=== PATIENT | female | born 1980 | race Caucasian/White ===

== ENCOUNTER 2018-02-06 08:30 | Day surgery (SDC) | payer OTHER ==
[2018-02-05 10:35] LABS: BILIRUBIN,URINE NEGATIVE (NEGATIVE); BLOOD, URINE NEGATIVE (NEGATIVE); CLARITY/URINE CLEAR (CLEAR); COLOR,URINE YELLOW (YELLOW); GLUCOSE,URINE NEGATIVE (NEGATIVE); KETONES,URINE NEGATIVE (NEGATIVE); LEUKOCYTE ESTERASE ,URINE NEGATIVE (NEGATIVE); NITRITE, URINE NEGATIVE (NEGATIVE); PH,URINE 6.5 (5.0-8.0); PROTEIN URINE NEGATIVE (NEGATIVE); UROBILINOGEN,URINE 0.2 (0.2-1.0)
[2018-02-05 10:39] LABS: HCG,QUAL RESULT NEGATIVE (NEGATIVE)
[2018-02-05 10:41] LABS: BASOPHILS # (AUTO) 0.1 K/uL (0.0-0.2); BASOPHILS % (AUTO) 1.1 % (0.0-2.0); EOSINOPHILS # (AUTO) 0.3 K/uL (0.0-0.4); EOSINOPHILS % (AUTO) 4.8 % (0.0-4.0); HEMOGLOBIN 13.9 g/dL (12.0-16.0); LYMPHOCYTES # (AUTO) 1.6 K/uL (1.0-5.5); MEAN CORPUSCULAR HEMOGLOBIN 31 pg (27-31); MEAN CORPUSCULAR HGB CONC 33 % (32-36); MEAN CORPUSCULAR VOLUME 95 fL (79.0-98.0); MONOCYTES # (AUTO) 0.3 K/uL (0.0-1.0); MONOCYTES % (AUTO) 4.5 % (1.7-9.3); NEUTROPHILS # (AUTO) 3.7 K/uL (1.8-7.7); NEUTROPHILS % (AUTO) 63.6 % (40.0-70.0); PLATELET COUNT (AUTO) 291 K/uL (130-430); RED BLOOD CELL COUNT(AUTO) 4.43 MIL/uL (4.2-6.2); RED CELL DISTRIBUTION WIDTH 12.4 % (9.0-15.0)
[2018-02-05 10:51] LABS: CALCIUM 9.4 mg/dL (8.4-11.0); CREATININE 0.86 mg/dL (0.55-1.30); POTASSIUM 3.8 mmol/L (3.5-5.1)
[~2018-02-06] VITALS: Ht 162.6 cm; Wt 59.0 kg
[2018-02-06] MEDS ORDERED: ONDANSETRON HCL 4 MG/2 ML VIAL IVP ONE (10:35)
[2018-02-06] MEDS ORDERED: BUPIVACAINE /PF 0.5% 30 ML VIAL INJ ONE (10:35)
[2018-02-06] MEDS ORDERED: fentaNYL CITRATE 250 MCG/5 ML AMP IV ONE (10:35)
[2018-02-06] MEDS ORDERED: PROPOFOL 200MG/ 20ML VIAL (DIPRIVAN) IV ONE (10:35)
[2018-02-06] MEDS ORDERED: SEVOFLURANE 15 MIN GAS INH ONE (10:35)
[2018-02-06] MEDS ORDERED: NS 1000 ML IV.SOLN IV ONE (10:35)
[2018-02-06] MEDS ORDERED: CEFAZOLIN 1 GM IVPB PREMIX 50 ML IV ONE (10:35)
[2018-02-06] MEDS ORDERED: LR 1,000 ML IV.SOLN IV ONE (10:35)
[2018-02-06] MEDS ORDERED: KETOROLAC TROMETHAMINE 30 MG VIAL IVP ONE (10:35)
[2018-02-06] MEDS ORDERED: EPINEPHrine 1 MG/ML AMP IV ONE (10:35)
[2018-02-06] MEDS ORDERED: ROCURONIUM BROMIDE 10 MG/ML (ZEMURON) IV ONE (10:35)
[2018-02-06] MEDS ORDERED: MIDAZOLAM HCL 5 MG/5 ML VIAL IVP ONE (10:35)
[2018-02-06] MEDS ORDERED: LR 1,000 ML IV SCH (12:10)
[2018-02-06] MEDS ORDERED: HYDROmorphone 2 MG/ML VIAL IVP PRN (12:15)
[2018-02-06] MEDS ORDERED: HYDROmorphone 1 MG INJ. 1 MG/ML AMPUL IVP PRN ×2 (12:15)
[2018-02-06] MEDS ORDERED: METOCLOPRAMIDE HCL 10 MG/2 ML VIAL IVP PRN (12:15)
[2018-02-06] MEDS ORDERED: OXYCODONE/ACETAMINOPHEN 5-325 TABLET PO PRN (12:45)
[2018-02-06] MEDS ORDERED: ONDANSETRON HCL 4 MG/2 ML VIAL IVP PRN (12:45)
[2018-02-06] MEDS ORDERED: PROMETHAZINE HCL 25 MG/ML AMP IM PRN (12:45)
[2018-02-06] MEDS ORDERED: METOCLOPRAMIDE HCL 10 MG/2 ML VIAL ONE (13:14)
[2018-02-06] MEDS ORDERED: HYDROmorphone 1 MG INJ. 1 MG/ML AMPUL ONE (13:15)
[2018-02-06 13:55] VITALS: BP_SYST 108
== END 2018-02-06 15:20 | disposition home or self-care (01) ==
LOC: SDS 08:30 → SMU 08:31 → SDS 15:20
PROVIDERS: ATTEND Obstetrics & Gynecology
DX: C56.2 Malignant neoplasm of left ovary (principal); Z98.890 Other specified postprocedural states
CPT/HCPCS: 36415; 80048; 81003; 84703; 85025; 86886; 86900; 86901; 88307; C1727; J0171; J0690; J1170; J1885; J2250; J2405; J2704; J2765; J3010; J3490; J7030; J7120